=== PATIENT | male | born 1945 | race Caucasian/White ===

== ENCOUNTER 2017-08-01 16:39 | Inpatient (IN) | payer MEDICARE, OTHER ==
[2017-08-01] MEDS ORDERED: Methocarbamol 500 MG TAB PO SCH (18:15)
--- NOTE | 2017-08-01 18:24 | RAD ---
PORTABLE CHEST ONE VIEW: Date: 08-01-17 Time: 6:04 p.m. History: Trauma. Right sided back pain. FINDINGS: Comparison is made with 12-06-10. The heart size is borderline. The aorta is tortuous. The lungs are expanded without confluent areas of consolidation, pneumothorax, or pleural effusions. There are degenerative changes in the spine an d acromioclavicular joints. IMPRESSION: No acute process. POS: SOWMYA
--- NOTE | 2017-08-01 20:00 | RAD ---
RIGHIT HIP TWO VIEWS: History: Right hip pain, trauma. FINDINGS/IMPRESSION: Mild degenerative changes are present. There is a questionable fracture involving the subcapital reg ion of the right femoral neck. Further evaluation with CT is recommended. POS: BOOKER
[2017-08-01] MEDS ORDERED: Acetaminophen 500 MG TAB ONE (20:50)
--- NOTE | 2017-08-01 21:32 | CT ---
CT PELVIS WITHOUT CONTRAST: History: Fall, right hip pain. FINDINGS: There is a fracture involving the neck of the right femur without significant displacement. There is suggestion of an element of associated impaction. There are post op changes of left total hip arthroplasty in good position and alignment. There are d egenerative changes in the lower lumbar spine. No sigmoid diverticulosis. The prostate is enlarged. There are fat containing bilateral inguinal hernias, left larger than right. IMPRESSION: Right femoral neck fracture. POS: BOOKER
[2017-08-01] MEDS ORDERED: traMADol HCl 50 MG TAB PO PRN (21:45)
[2017-08-01] MEDS ORDERED: Dextrose 5% in Water 1,000 ML IV SCH (21:45)
[2017-08-01] MEDS ORDERED: Ondansetron HCl/PF 4 MG/2 ML Vial IVP PRN (21:45)
[2017-08-01] MEDS ORDERED: Bisacodyl 10 MG SUPP PR PRN (21:45)
[2017-08-01] MEDS ORDERED: Ondansetron ODT 4 MG TAB PO PRN (21:45)
[2017-08-01] MEDS ORDERED: Fleet Enema 133 ML BOT PR PRN (21:45)
[2017-08-01] MEDS ORDERED: Dextrose 50% Abboject 50 ML SYRINGE SLOW IVP PRN (21:45)
[2017-08-01] MEDS ORDERED: Insulin Regular 300 UNITS/3 ML VIAL SC PRN (21:45)
[2017-08-01] MEDS ORDERED: Milk Of Magnesia 30 ML UDCUP PO PRN (21:45)
[2017-08-01 22:01] LABS: #Eosinphils 0.5 thou/uL (0.0-0.7); #Lymphocytes 1.7 thou/uL (1.20-3.40); #Monocytes 0.9 thou/uL (0.11-0.59); #Neutrophils 7.8 thou/uL (1.40-6.50); %Basophils 0.2 % (0.0-1.0); %Eosinophils 4.2 % (0.0-10.0); %Lymphocytes 15.7 % (21.0-51.0); %Monocytes 8.3 % (0.0-10.0); Hematocrit 43.7 % (42.0-52.0); Red Blood Cell (RBC) Count 4.58 mill/uL (4.70-6.10); White Blood Cell (WBC) Count 10.9 thou/uL (4.8-10.8)
[2017-08-01 22:06] LABS: Prothrombin Time 14.7 SEC (12.0-14.7)
[2017-08-01 22:07] LABS: PTT 31.5 SEC (22.9-36.1)
[2017-08-01 22:22] LABS: Anion Gap 16 mmol/L (10-20); BUN (Urea Nitrogen) 34 mg/dL (8.4-25.7); CK (CPK) 274 U/L (30-200); Calc. Creatinine Clearance 0 mL/min (70-130); Calcium 9.5 mg/dL (7.8-10.44); Carbon Dioxide 20 mmol/L (23-31); Chloride 108 mmol/L (98-107); Estimated GFR-MDRD 29
[2017-08-01 23:14] VITALS: BMI 27.9
--- NOTE | 2017-08-02 01:32 | HP ---
This is Bradley Bai PA-C, dictating for Andrea Colon M.D. DATE OF ENCOUNTER: 08/01/2017 ATTENDING PHYSICIAN: Andrea Colon M.D. CONSULTING PHYSICIAN: Keo Espinoza M.D., as well as Loc Nielson M.D., for Orthopedics. CHIEF COMPLAINT: Evaluation status post fall. HISTORY OF PRESENT ILLNESS: This is a 71-year-old male who presented to the ED with a complaint of right hip pain and some right back pain, status post trying to step up on a step then missing a step , landing on his right side. Patient denies any neck pain, chest pain or shortness of breath at thi s time, otherwise at baseline. Patient denies any LOC. He reported that he landed on his right hip directly. EMS again reported the same right hip pain and back pain. Denies any alcohol involved. Also reports not being able to get up after the fall. PAST MEDICAL HISTORY: Includes COPD, diabetes and chronic kidney disease. PAST SURGICAL HISTORY: Cataracts, cholecystectomy and orthopedic surgery, left hip. PSYCHIATRIC HISTORY: Depression. SOCIAL HISTORY: The patient denies any alcohol use. Patient was a former tobacco smoker, quit less than 10 years ago. REVIEW OF SYSTEMS: All 10 systems were reviewed otherwise stated in the HPI were negative. PHYSICAL EXAMINATION: CURRENT VITAL SIGNS: Blood pressure 112/59, heart rate 69, respiratory rate 17, pain is about 5/10. HEENT: Atraumatic and normocephalic. No JVD, no masses. Pupils are equal, round and reactive to l ight. RESPIRATORY: Somewhat rhonchorous bilaterally and a slight expiratory wheeze. CARDIOVASCULAR: S1 and S2, regular rate and rhythm. BACK: Unremarkable. EXTREMITIES: Unremarkable lower extremities. Tenderness to the right hip, but otherwise no deformi ties or rotation. NEUROLOGIC: GCS of 15. SKIN: Warm and dry. LABORATORY AND IMAGING DATA: Laboratory results are pending. Radiologic results; CT of pelvis show ed a nondisplaced right subcapital femoral neck fracture. Chest x-ray showed no acute process. Hip x-ray showed possible hip fracture. ASSESSMENT: 1. Status post ground level fall. 2. Right subcapsular femoral neck fracture. 3. History of chronic obstructive pulmonary disease. 4. History of chronic kidney disease. 5. History of diabetes. PLAN: The patient was adamant about not having an IV due to not having a guaranteed time of surgery . Orthopedics have been consulted metal control coordinator as well as has requested physician, Dr. Nielson. Dr. Ace mcleod was made aware of this patient. The patient was not made n.p.o. after midnight unless guaranty a surgical start time of 6:00 a.m. The patient agreed to speak with orthopedics the following day and understood the effects that could add on end of the hospital day. The patient understood this and this was in the presence of his nurse at bedside. Patient was agreeable to admission and medication s by mouth, reconcile his home medications as well as give him some fluid or something to drink. Th e patient is nonweightbearing lower extremities, he fully understood that and will be compliant stay ing in bed and using urinal for bathroom. He will be started on gastritis and DVT prophylaxis on me chanical nature. The patient has been discussed with Dr. Colon and agreed with the above plan. We will also get Dr. Mulligan who is his software development engineer by patient's request due to his chronic kidney disease .
[2017-08-02] MEDS: Acetaminophen 500 MG TAB PO PRN ×2 (02:02→06:36)
--- NOTE | 2017-08-02 08:16 | CON ---
DATE OF CONSULTATION: 08/02/2017 CHIEF COMPLAINT: Right hip pain. HISTORY OF PRESENT ILLNESS: Mr. Bhardwaj is a 71-year-old male who presented after a fall, complaine d of right hip pain and some low back pain. The patient was admitted by Trauma. We were consulted for evaluation of the patient's right hip. He landed directly on his right side. The patient is cu rrently resting comfortably in bed. He states that he can move his hip, but does have some mild lynda n with right hip motion. The patient has a significant history for a left hip femoral neck fracture with left hip hemiarthroplasty, recently 1 month ago underwent a tenosynovectomy of his right hand by Dr. Perez. The hemiarthroplasty is approximately 6 years ago. The patient is comfortably res ting in bed, pain controlled. PAST MEDICAL HISTORY: COPD, diabetes, chronic kidney disease. PAST SURGICAL HISTORY: Cataracts, cholecystectomy and above orthopedic surgery. PSYCHIATRIC HISTORY: Depression. CURRENT MEDICATIONS: Please see admission list for full details. SOCIAL HISTORY: The patient denies alcohol use. He is a former smoker. The patient lives independ [facility], is able to get around at home. He would be described as a somewhat community ambulator, but does not walk long distances secondary to his COPD. REVIEW OF SYSTEMS: Otherwise, negative. PHYSICAL EXAMINATION: VITAL SIGNS: Currently, is 97.8, 61, 18, 92, 138/73. GENERAL: Alert and oriented male in no acute distress. EXTREMITIES: Right lower extremity has no bruises, no wounds, no knee effusion. The patient will p lantarflex, dorsiflex. Internal and external rotation of right hip is not painful, he has got no sh ortening or external rotation. The patient has cap refill. The L4 through S1 distributions is to p lantarflex, dorsiflex and extend his toes. LABORATORY AND X-RAY FINDINGS: He has a H\T\H of 14 and 43. INR 1.1. He has a creatinine of 2.25. The patient's plain films of his right hip, as well as CT of his right hip showed nondisplaced femor al neck fracture. CT scan shows a bipolar in place. IMPRESSION: 1. Right nondisplaced femoral neck fracture. 2. Chronic obstructive pulmonary disease. 3. Diabetes. 4. Chronic kidney disease. ASSESSMENT AND PLAN: I discussed with patient at bedside operative treatment options to include mariza sed reduction and percutaneous pinning, hemiarthroplasty and total hip arthroplasty. The patient di d not desire total hip replacement. I discussed that I could complete the fracture and place hemiar throplasty, at his previous site or place percutaneous screws. I discussed risks and benefits of alina th. The patient would like to discuss this with his family further. He is leaning towards closed r eduction and percutaneous pinning with 3 screws. I discussed this could fail and require revision t o total hip or hemiarthroplasty. I discussed this would be the most minimally invasive procedure an d the least amount of surgery, but that it has a little higher failure rate. I discussed that the p atient and family can discuss this. We will place IV, make him n.p.o. Patient will receive TXA and Ancef preoperatively. The patient will be posted for later this morning.
[2017-08-02] MEDS: Docusate 100 MG CAP PO SCH ×2 (09:29→20:03)
--- NOTE | 2017-08-02 09:43 | CON ---
DATE OF CONSULTATION: 08/02/2017 RENAL MEDICINE HISTORY OF PRESENT ILLNESS: Mr. Bhardwaj is a 71-year-old white male with chronic renal failure from hypertensive nephropathy. He was admitted for right hip pain with subsequent right hip fracture no nilson. We are now being consulted for his chronic renal failure/acute kidney injury. REVIEW OF SYSTEMS: Positive for right hip joint pain, no nausea, no vomiting, no diarrhea, no chest pain, no shortness of breath, no hematochezia, no melena, no hematemesis. No syncopal episode, no headache, no diplopia, no sore throat. Appetite and energy level is fair. No fever or chills. No hematochezia, no melena, no gross hematuria. MEDICATIONS: Currently on Tylenol 1000 mg q.6, DuoNeb q.6 p.r.n., Colace 100 mg p.o. b.i.d., Humuli n R sliding scale, and tramadol 50 mg q.6. HOME MEDICATIONS: Included gemfibrozil 600 mg p.o. b.i.d., amlodipine 10 mg tablet once a day, negro nopril 2.5 mg once daily, ProAir as directed. PAST MEDICAL HISTORY: Type 2 diabetes mellitus 13 years' duration, COPD, hypertension, DJD, basal c ell cancer, hyperlipidemia, chronic ibuprofen use. PAST SURGICAL HISTORY: 1. Status post left hip replacement. 2. Status post skin cancer excision. SOCIAL HISTORY: Patient is from [place]. He is a . He lives alone. 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 Education, high school. Smoked for 40 years and one and half pack a day. Alcohol none. No blood transfusion. No IV drug abuse. FAMILY HISTORY: Positive family history of ESRD. ALLERGIES: None. TRAUMA: Status post left hip fracture recently, status post right hip fracture. IMMUNIZATIONS: Up to date. HOSPITALIZATIONS: Please see past medical history. PHYSICAL EXAMINATION: VITAL SIGNS: Blood pressure is noted at 138/73, heart rate 61, respiratory rate 18, temperature 97. 8, pulse ox 92%. GENERAL: Awake, supine, comfortable, not in overt distress. SKIN: Adequate turgor. HEENT: Pinkish conjunctivae, anicteric sclerae. NECK: No neck mass, no carotid bruits, no JVD. CHEST: No deformities. LUNGS: Clear breath sounds. No wheezing, no crackles. HEART: Normal sinus rhythm. No murmur, no gallops, no rubs. ABDOMEN: Globular, soft, nontender, no masses. EXTREMITIES: No edema. Limited range of motion of right hip joint. NEUROLOGIC: Awake, oriented to 3 spheres. Moving all extremities. No tremors, no asterixis, no at axia. LABORATORY DATA: Laboratories of 08/01/2017, sodium 140, potassium 4.3, chloride 108, carbon dioxid e 20, BUN 34, creatinine 2.25, GFR 29 mL per minute, calcium 9.5, CK is 274, white count 10.9, hemog lobin 14.1. ASSESSMENT AND PLAN: 1. Acute kidney injury/chronic renal failure - slightly higher creatinine. My last creatinine was noted at 1.9. Currently, it is noted at 2.25 - that may be a component of prerenal azotemia. We wi ll start normal saline 100 mL an hour with this patient. Continue to hold off any VILMA inhibitors wi th this patient. Continue to hold off any nonsteroidal antiinflammatory drugs. 2. Right hip fracture - planned right hip surgery this morning. I agree with current management. We will be rechecking basic metabolic panel and CBC in a.m. with this patient. If needed, once the patient is able to take p.o., we can resume back amlodipine at 10 mg tablet once a day.
[2017-08-02] MEDS ORDERED: Midazolam HCl 2 mg/2 ml Vial ONE (12:21)
[2017-08-02] MEDS ORDERED: Fentanyl 100 MCG/2 ML VIAL ONE (12:21)
--- NOTE | 2017-08-02 12:23 | PRG-2 ---
DATE OF ADMISSION: 08/01/2017 DATE OF SERVICE: 08/02/2017 SUBJECTIVE: This is a 71-year-old male status post right nondisplaced femoral neck fracture after m echanical fall. The patient reports doing well today. Pain being well controlled as good as it can be when he gets up. Patient only requests to take Tylenol, does not want anything stronger for lynda n. He says he is able to tolerate the pain as needed. The patient has no other concerns or complai nts at this time. OBJECTIVE: VITAL SIGNS: Temperature is 97.8, pulse 61, respirations are 18, O2 sats are 92% on room air, blood pressure is 138/73. PHYSICAL EXAMINATION: GENERAL: He is an alert, oriented x3, in no acute distress. HEENT: Atraumatic, normocephalic. RESPIRATORY: The rhonchi heard bilaterally with a slight expiratory wheeze. Symmetric chest expans ion, nonlabored breathing. CARDIOVASCULAR: Regular rate and rhythm. No murmurs or gallops heard. EXTREMITIES: Unremarkable lower extremities: He is tender to the right hip, but otherwise no defor mities or rotation. NEUROLOGIC: No new focal neuro deficits. SKIN: Warm and dry. LABORATORY DATA: There are no new labs to review at this time. IMAGIN08/01/2017, his pelvis CT showed right femoral neck fracture. His 08/01/2017 chest x-ray showed no acute process. ASSESSMENT: 1. Status post mechanical fall. 2. Right subscapular femoral neck fracture, fixation pending. 3. History of chronic obstructive pulmonary disease. 4. History of chronic kidney disease being followed by Dr. Mulligan who has been consulted. 5. History of diabetes. PLAN: Plan is for him to be fixed by Orthopedic Surgery today. Plan for fixation of the femoral ne ck fracture. PT and OT will be consulted to continue working with him after surgery. Postoperative ly, we will continue to manage his pain as needed. The patient requests only Tylenol for pain. We will continue to see how he does postop. We also have consulted Dr. Mulligan who the patient follows out patient for his chronic kidney disease. We will follow Dr. Skelton' directions as he requests. I will continue to follow vital signs and assess labs as needed. The patient was seen and assessed with Desiree Jerry. Plan of care was discussed Dr. Jerry. This note needs to be cosigned by Dr. Jerry.
[2017-08-02] MEDS ORDERED: Sodium Chloride 0.9% 100 ML ONE ×2 (12:38→14:49)
[2017-08-02] MEDS ORDERED: Meperidine HCl/PF 25 MG/ML VIAL ONE (13:25)
[2017-08-02] MEDS ORDERED: Lidocaine 2% w/Epinephrine 1:200K 20 ML VIAL ONE (13:58)
[2017-08-02] MEDS ORDERED: Tranexamic Acid 1,000 MG in Sodium Chloride 0.9% 100 ML IVPB SCH (14:15)
[2017-08-02] MEDS ORDERED: Ondansetron HCl/PF 4 MG/2 ML Vial IVP PRN (14:46)
[2017-08-02] MEDS ORDERED: Promethazine HCl 25 MG/ML VIAL SLOW IVP PRN (14:46)
[2017-08-02] MEDS ORDERED: Promethazine HCl 25 MG/ML VIAL IM PRN (14:46)
--- NOTE | 2017-08-02 15:01 | RAD ---
FOUR INTRAOPERATIVE IMAGES OF THE RIGHT HIP: Date: 08-02-17 History: Fracture status post ORIF. FINDINGS: Four intraoperative images are provided. Images demonstrate placement of three screws traversing the right femoral neck. No evidence for hardware failure. IMPRESSION: ORIF as detailed above. POS: BOOKER
[2017-08-02] MEDS ORDERED: Ketorolac Tromethamine 30 MG/ML VIAL IVP PRN (15:48)
[2017-08-02] MEDS: Senokot S 8.6-50 MG TAB PO SCH (20:02)
[2017-08-02] MEDS: Ferrous Gluconate 324 MG TAB PO SCH (20:03)
[2017-08-03 05:40] LABS: Hematocrit 40.2 % (42.0-52.0); Mean Platelet Volume 6.8 fL (7.4-10.4); Red Blood Cell (RBC) Count 4.15 mill/uL (4.70-6.10); White Blood Cell (WBC) Count 10.2 thou/uL (4.8-10.8)
[2017-08-03 05:44] LABS: #Lymphocytes 0.7 thou/uL (1.20-3.40); #Monocytes 0.5 thou/uL (0.11-0.59); #Neutrophils 9.2 thou/uL (1.40-6.50); %Basophils 0.1 % (0.0-1.0); %Eosinophils 0.3 % (0.0-10.0); %Lymphocytes 6.8 % (21.0-51.0); Hematocrit 40.9 % (42.0-52.0); Mean Platelet Volume 6.6 fL (7.4-10.4); Red Blood Cell (RBC) Count 4.21 mill/uL (4.70-6.10); White Blood Cell (WBC) Count 10.4 thou/uL (4.8-10.8)
[2017-08-03 05:53] LABS: Anion Gap 12 mmol/L (10-20); BUN (Urea Nitrogen) 28 mg/dL (8.4-25.7); Calc. Creatinine Clearance 47 mL/min (70-130); Calcium 8.7 mg/dL (7.8-10.44); Carbon Dioxide 25 mmol/L (23-31); Chloride 107 mmol/L (98-107); Estimated GFR-MDRD 34
--- NOTE | 2017-08-03 06:10 | OP ---
DATE OF PROCEDURE: 08/02/2017 PREOPERATIVE DIAGNOSIS: Right femoral neck fracture, nondisplaced valgus impacted. POSTOPERATIVE DIAGNOSIS: Right femoral neck fracture, nondisplaced valgus impacted. PROCEDURE PERFORMED: Closed reduction and percutaneous pinning. STAFF: Keo Espinoza M.D. BOXING AND PRESSING SUPERVISOR: None. ANESTHESIA: Shayne Wilson M.D. The patient received LMA with a fascia iliaca block with 22% lidocaine subcutaneous and subfascial. ANTIBIOTICS: Ancef 2 grams, TXA 1 gram. IMPLANTS: The patient received three 7 x 3 screws, 100, 100, and 115 mm screws with 3 washers. COMPLICATIONS: None. HISTORY OF PRESENT ILLNESS: Mr. Bhardwaj is a pleasant 71-year-old male who fell from standing height sustaining a right femoral neck fracture. The patient has a history of COPD, kidney disease, hypertension, and a left femoral neck fracture. The patient was able to ambulate around the house and around the community, but is minimal because of his previous COPD. I discussed with the patient the risks and benefits of the closed reduction and percutaneous pinning for hemiarthroplasty. Family and the daughter elected for percutaneous pinning. Understood the potential risk of failure and required revision to total hip. He understood the risks and benefits of surgery that include pain, scar, bleeding, infection, damage to vital structures, decreased range of motion or strength, continued surgery, continued pain despite surgical intervention. The patient understood these risks and benefits and elected to proceed. PROCEDURE IN DETAIL: After a timeout was performed, the patient received LMA and fascia iliaca block for anesthesia. He was placed in a supine position; bump was placed under his right hip. Right hip was prepped and draped in sterile fashion and lateral markers were used to find the neck of the femur to itz out skin incision. Incision through skin, then through IT band was utilized, a guide pin was placed inferiorly and passed the inferior neck into nferior neck within the femoral head. I then used the pin guide to localize my second 2 pins and placed 2 more screws to the bone. Ensured under AP and lateral radiographs that the screws were within the bone of the head as well as laterally as well as to the neck based on images. After completion of this, I then drilled unicortically and placed a 100 in the superior anterior, 100 in the posterior superior, and then 115 mm screw in the inferior place. After completion of this, I then washed, took final films, I then removed the pins, washed, closed the IT band with 0, closed subcu with 2-0 screws, skin with jovon, placed 20 mL of lidocaine 2% with epinephrine. The patient will be weightbearing as tolerated. He will be followed in-house by Physical Therapy and will be discharged to home when he is cleared. NORRIS
[2017-08-03] MEDS ORDERED: Alogliptin Benzoate 6.25 MG TABLET PO SCH (09:00)
[2017-08-03] MEDS ORDERED: Aspirin 325 MG TAB PO SCH (09:00)
[2017-08-03] MEDS ORDERED: Non-Formulary Item 1 EACH (Umeclidinium/Vilanterol [Anoro Ellipta 62.5/25 Mcg Inh] 1 PUFF IH SCH (09:00)
[2017-08-03] MEDS ORDERED: Lisinopril 2.5 MG TAB PO SCH (09:00)
[2017-08-03] MEDS ORDERED: Fenofibrate Nanocrystallized 145 MG TAB PO SCH (09:00)
[2017-08-03] MEDS: Aspirin 81 mg Enteric Coated Tablet PO SCH (09:25)
--- NOTE | 2017-08-03 09:26 | PRG ---
DATE OF SERVICE: 08/03/2017 SUBJECTIVE: Mr. Bhardwaj is a 71-year-old white male who was admitted for a right femoral neck fract ure. He underwent a closed reduction and percutaneous pinning. We saw the patient for his acute ki dney injury on top of his chronic renal failure. He was started on volume repletion. This improved the creatinine. Lisinopril was restarted at 2.5 mg tab once daily. The patient denies any chest pain, shortness of breath, nausea or vomiting. PHYSICAL EXAMINATION: VITAL SIGNS: Blood pressure is 104/54, heart rate 70, respiratory rate 20, temperature 98. GENERAL: Awake, alert, comfortable, not in distress. SKIN: Adequate turgor. HEENT: Pinkish conjunctivae, anicteric sclerae. NECK: No neck mass, no carotid bruits, no JVD. CHEST: No deformities. LUNGS: Clear breath sounds. No wheezing, no crackles. HEART: Normal sinus rhythm. No murmur, no gallops or rubs. ABDOMEN: Globular, soft, nontender. EXTREMITIES: No edema, no deformities. MEDICATIONS: 08/03/2017 - Reviewed. LABORATORY: 08/03/2017 - Sodium 139, potassium 4.6, chloride 107, carbon dioxide 25, BUN 28, creati nine 1.97, glucose 49, calcium 8.7. White count 10.2, hemoglobin 12.8. ASSESSMENT AND PLAN: 1. Status post right femoral neck fracture - the patient is status post closed reduction with percu taneous pinning, doing well. Surgery is following. 2. Acute kidney injury - hemodynamically mediated renal dysfunction. Improved with volume repletio n. My bias due to the relatively low blood pressure is to discontinue his lisinopril. 3. Chronic renal failure, baseline creatinine is about 1.7-1.9. Continue current management. Ther e is no indication for any dialytic intervention. Recheck basic metabolic panel and CBC in a.m.
[2017-08-03] MEDS: Ferrous Gluconate 324 MG TAB PO SCH ×2 (09:27→21:40)
[2017-08-03] MEDS: AMLODIPINE BESYLATE 10 MG PO SCH (09:33)
[2017-08-03] MEDS: LISINOPRIL 2.5 MG PO SCH (09:34)
[2017-08-03] MEDS: SERTRALINE 50 MG PO SCH (09:35)
[2017-08-03] MEDS: FENOFIBRATE 145 MG PO SCH (09:36)
[2017-08-03] MEDS: JANUVIA 100 MG PO SCH (09:37)
[2017-08-03] MEDS: VITAMIN D3 2000 UNIT PO SCH (09:38)
[2017-08-03] MEDS: Docusate 100 MG CAP PO SCH ×2 (09:38→21:39)
[2017-08-03] MEDS: Senokot S 8.6-50 MG TAB PO SCH ×2 (09:39→21:41)
[2017-08-03] MEDS: Multivitamin W/ Minerals 1 TAB PO SCH (09:39)
[2017-08-03] MEDS: Acetaminophen 500 MG TAB PO PRN (09:43)
--- NOTE | 2017-08-03 11:52 | PRG-2 ---
DATE OF SERVICE: 08/03/2017 SUBJECTIVE: This is a 71-year-old male status post right nondisplaced femoral neck fracture after m echanical fall. The patient is postop day #1 status post repair of fracture. Reports doing well to day. Pain is tolerable. The patient only requests to take Tylenol. He has yet to work with PT and OT. He said he has sat up on the bed and has tolerated the pain okay. Otherwise, the patient has no other concerns or complaints at this time. OBJECTIVE: VITAL SIGNS: Temperature 98.0, pulse 70, respirations 20, O2 sat was 91% on 2 liters, blood pressur e was 104/54. GENERAL: Alert and oriented x3, no acute distress. HEENT: Atraumatic, normocephalic. RESPIRATORY: There is rhonchi heard bilaterally with a slight expiratory wheeze. Symmetric chest e xpansion, nonlabored breathing. CARDIOVASCULAR: Regular rate and rhythm. No murmurs or gallops. EXTREMITIES: Unremarkable. Lower extremities, no edema. Able to move upper extremities well. NEUROLOGIC: No new focal neuro deficits. LABORATORY DATA: White blood cell count of 10.2, hemoglobin 12.8, hematocrit 40.2, platelet count i s 204. Sodium is 139, potassium is 4.6, chloride 107, carbon dioxide 25, BUN is 28, creatinine is 1 .97, glucose was low at 49 and calcium is 8.7. No new images to review at this time. ASSESSMENT AND PLAN: 1. Status post mechanical fall. 2. Postop day #1 for fixation of right subscapular femoral neck fracture. 3. History of chronic obstructive pulmonary disease. 4. History of chronic kidney disease. Dr. Mulligan has been consulted. 5. History of diabetes. PLAN: The plan is for him to work with PT and OT today. We will manage pain as needed. I talked w ith him about using other pain medicines other than Tylenol if he needs to. The patient reports arnel erating diet. His creatinine has trended down. Per Dr. Mulligan's note he is at baseline creatinine. W e will continue to check labs as needed and monitor. Will continue to monitor vital signs as needed . His blood sugar was a little low overnight. We will continue to watch that and monitor and may a djust insulin as needed. The patient was seen with Dr. Jerry. The plan of care was discussed with Dr. Jerry.
[2017-08-04 05:11] LABS: #Eosinphils 0.6 thou/uL (0.0-0.7); #Lymphocytes 0.9 thou/uL (1.20-3.40); #Neutrophils 7.5 thou/uL (1.40-6.50); %Basophils 0.5 % (0.0-1.0); %Eosinophils 6.2 % (0.0-10.0); %Lymphocytes 8.8 % (21.0-51.0); %Monocytes 9.5 % (0.0-10.0); Hematocrit 40.4 % (42.0-52.0); Red Blood Cell (RBC) Count 4.17 mill/uL (4.70-6.10)
[2017-08-04 05:20] LABS: Anion Gap 10 mmol/L (10-20); BUN (Urea Nitrogen) 30 mg/dL (8.4-25.7); Calc. Creatinine Clearance 50 mL/min (70-130); Calcium 9.1 mg/dL (7.8-10.44); Carbon Dioxide 27 mmol/L (23-31); Chloride 103 mmol/L (98-107); Estimated GFR-MDRD 36
[2017-08-04] MEDS: traMADol HCl 50 MG TAB PO PRN ×2 (06:08→23:40)
[2017-08-04] MEDS: Aspirin 81 mg Enteric Coated Tablet PO SCH (09:51)
[2017-08-04] MEDS: SERTRALINE 50 MG PO SCH (09:51)
[2017-08-04] MEDS: LISINOPRIL 2.5 MG PO SCH (09:51)
[2017-08-04] MEDS: AMLODIPINE BESYLATE 10 MG PO SCH (09:52)
[2017-08-04] MEDS: FENOFIBRATE 145 MG PO SCH (09:53)
[2017-08-04] MEDS: VITAMIN D3 2000 UNIT PO SCH (09:53)
[2017-08-04] MEDS: Multivitamin W/ Minerals 1 TAB PO SCH (09:54)
[2017-08-04] MEDS: Senokot S 8.6-50 MG TAB PO SCH ×2 (09:54→21:03)
[2017-08-04] MEDS: Ferrous Gluconate 324 MG TAB PO SCH ×2 (09:54→21:03)
[2017-08-04] MEDS: Docusate 100 MG CAP PO SCH ×2 (09:54→21:03)
[2017-08-04] MEDS: JANUVIA 100 MG PO SCH (10:03)
--- NOTE | 2017-08-04 10:59 | PRG ---
DATE OF SERVICE: 08/04/2017 SUBJECTIVE: Mr. Bhardwaj is a 71-year-old male status post nondisplaced femoral neck fracture after mechanical fall. The patient is postop day #2 status post repair of fracture. The patient reports doing well today. He has started using pain medicine as ordered. He did, however, refuse his stool softeners. He is currently working with physical therapy and states his pain is better controlled. He did have an episode of hypoglycemia overnight; however, the patient states that he has been eat ing all his meals. He states that his blood sugars typically run 100-400 as an outpatient. The caroline zapata's primary care physician was contacted and notified of difficulty managing the patient's blood sugars on his oral anti-hyperglycemics. We will reduce his dose by half. OBJECTIVE: VITAL SIGNS: Temperature 98.9, pulse 86, respiration rate 18, O2 sat 90-94% on 2 liters room air, b lood pressure 103/59. GENERAL: Well-developed, well-nourished male resting in bed in no acute distress. PULMONARY: Normal work of breathing. Symmetric rise. CARDIOVASCULAR: Regular rate and rhythm. GASTROINTESTINAL: Soft, nontender, nondistended. MUSCULOSKELETAL: Moves all extremities x4. NEUROLOGIC: No focal deficit noted. LABORATORY DATA: WBC 10.0, hemoglobin 12.9, hematocrit 40.4, platelet count 216. Sodium 135, potas sium 4.9, chloride 103, carbon dioxide 27, BUN 30, creatinine 1.85. Glucose 53, most recent now 126 . No new radiographic findings. ASSESSMENT: 1. Status post fall. 2. Postop day #2 for fixation of right subcapsular femoral neck fracture. 3. History of chronic obstructive pulmonary disease. 4. History of chronic kidney disease, Nephrology following. 5. Diabetes with hypoglycemia. 6. Constipation. PLAN: Continue working with PT and OT. Follow up case management and possible inpatient rehabilita tion. As discussed with patient's primary care provider we will reduce the patient's Januvia to 50 mg p.o. daily. Continue pain management as ordered. Importance of a bowel regimen discussed with t he patient. Add lactulose 30 mg p.o. once daily until bowel movement. The patient was seen and shan luated by Dr. Jerry. All questions were answered at the time of this dictation.
[2017-08-04] MEDS ORDERED: Bisacodyl 10 MG SUPP PR SCH (15:30)
--- NOTE | 2017-08-04 22:53 | DIS ---
DATE OF ADMISSION: 08/01/2017 DATE OF DISCHARGE: 08/05/2017 ADMISSION DIAGNOSES: 1. Status post fall. 2. Acute traumatic pain. 3. Right femoral neck fracture. 4. Chronic obstructive pulmonary disease. 5. Chronic kidney disease. 6. Diabetes. DISCHARGE DIAGNOSES: 1. Status post fall. 2. Acute traumatic pain. 3. Right femoral neck fracture. 4. Chronic obstructive pulmonary disease. 5. Chronic kidney disease. 6. Diabetes. CONSULTANTS: Dr. Espinoza, Orthopedic Surgery. Dr. Mulligan, Nephrology. PROCEDURES: On 08/02/2017, closed reduction and percutaneous pinning of right femoral neck fracture with Dr. Espinoza. HOSPITAL COURSE: Mr. Bhardwaj is a 71-year-old gentleman that presented to [facility] status post fall. He was found to have the above injuries. The patient was optimized perioperatively and underwent operative fixation of his injury on 08/02/2017. Postoperatively, patient did well. He worked with physical therapy. Pain was controlled via p.o. analgesics. He was able to mobilize. He is tolerating p.o. diet. Of note, he was noted to be hypoglycemic at multiple periods throughout the day while on his oral anti- hyperglycemics. We contacted his primary care provider, who agreed that dose adjustment would be appropriate. His dose was adjusted by half at that time. He was thought to be medically stable for discharge and accepted to inpatient rehabilitation on 08/04/2017. Just prior to discharge patient was found to be hypoglycemic and was held overnight for further observation. His blood sugar improved with PO intake. His oral antihyperglycemics were discontinued prior to discharge. DISCHARGE DISPOSITION: Inpatient rehabilitation. DISCHARGE CONDITION: Good. PHYSICAL EXAMINATION: Gen: WDWN male in NAD Pulm: Normal wob, symmetric rise CV: RRR GI: ab soft ntnd MSK: flanagan x 4 Neuro: No focal deficit DISCHARGE INSTRUCTIONS: Discharge instructions were provided to the patient in the accepting facility. All questions were answered prior to discharge. DISCHARGE MEDICATIONS: Patient was to resume home medications. Discharge medications as documented in the electronic medical record. Of note, patient's Januvia was discontinued secondary to multiple hypoglycemic events FOLLOWUP APPOINTMENTS: The patient should follow up with his primary care provider for his diabetes once discharged from inpatient rehabilitation. He is to follow up with Dr. Mulligan from Nephrology for his chronic kidney disease. He should follow up with his reo asset manager for COPD. He should follow up with Dr. Espinoza from Orthopedic Surgery. Once discharged from inpatient rehabilitation , he does not need to follow up with Dr. Jerry formally. May call our office with any questions. This is merely a summary of the patient's hospitalization. For more in-depth information, please see his medical record in its entirety. NORRIS
[2017-08-05 06:09] LABS: Anion Gap 12 mmol/L (10-20); BUN (Urea Nitrogen) 32 mg/dL (8.4-25.7); Calc. Creatinine Clearance 50 mL/min (70-130); Calcium 8.8 mg/dL (7.8-10.44); Carbon Dioxide 25 mmol/L (23-31); Chloride 102 mmol/L (98-107); Estimated GFR-MDRD 37
[2017-08-05 08:39] VITALS: BP 115/65; TEMP 98.6
[2017-08-05] MEDS: Docusate 100 MG CAP PO SCH (08:41)
[2017-08-05] MEDS: Aspirin 81 mg Enteric Coated Tablet PO SCH (08:41)
[2017-08-05] MEDS: AMLODIPINE BESYLATE 10 MG PO SCH ×3 (08:42→08:57)
[2017-08-05] MEDS: Ferrous Gluconate 324 MG TAB PO SCH (08:42)
[2017-08-05] MEDS: Multivitamin W/ Minerals 1 TAB PO SCH (08:42)
[2017-08-05] MEDS: FENOFIBRATE 145 MG PO SCH (08:42)
[2017-08-05] MEDS: LISINOPRIL 2.5 MG PO SCH ×2 (08:43→08:57)
[2017-08-05] MEDS: Senokot S 8.6-50 MG TAB PO SCH (08:43)
[2017-08-05] MEDS: SERTRALINE 50 MG PO SCH ×2 (08:43→08:53)
[2017-08-05] MEDS: VITAMIN D3 2000 UNIT PO SCH ×2 (08:43→08:57)
[2017-08-05] MEDS ORDERED: Alogliptin Benzoate 6.25 MG TABLET PO SCH (09:00)
--- NOTE | 2017-08-05 09:11 | PRG ---
DATE OF SERVICE: 08/05/2017 SUBJECTIVE: Mr. Bhardwaj is a 71-year-old white male who was admitted for a right femoral neck fract ure and underwent closed reduction and percutaneous pinning. We are seeing this patient for his acu te renal failure on top of his chronic renal failure. He is doing well. He denies any complaints. Adjustment of his medications has been made. The patient denies any chest pain, shortness of breat h, nausea or vomiting. PHYSICAL EXAMINATION: VITAL SIGNS: Blood pressure is 115/65, heart rate 74, respiratory rate 16, temperature 98.6, pulse ox 93%. GENERAL: Awake, alert, comfortable. SKIN: Adequate turgor. HEENT: Pinkish conjunctivae. Anicteric sclerae. NECK: No neck mass, no carotid bruit, no JVD. CHEST: No deformities. LUNGS: Clear breath sounds. No wheezing, no crackles. HEART: Normal sinus rhythm. No murmur, no gallops or rubs. ABDOMEN: Globular, soft, nontender. EXTREMITIES: No edema. Limited range of motion right hip joint. MEDICATIONS 08/05/2017 - Reviewed. LABORATORY: 08/04/2017 - White count 10, hemoglobin 12.9. 08/05/2017 - Sodium 134, potassium 5.1, chloride 102, carbon dioxide 25, BUN 32, creatinine 1.83, gl ucose 86, calcium 8.8. ASSESSMENT AND PLAN: 1. Acute kidney injury on top of chronic renal failure, much improved creatinine. Creatinine is no w at baseline. Continue supportive care. No indication for any dialytic intervention. Continue to hold off lisinopril. 2. Status post right femoral neck fracture - status post surgery. Doing well, for rehabilitation. Overall, agree with current management.
== END 2017-08-05 11:38 | DRG 481 ==
LOC: ERS 16:39 → SURG A 21:27
PROVIDERS: ADMIT Surgery; ATTEND Surgery
PROC: 0QS634Z Reposition Right Upper Femur with Internal Fixation Device, Percutaneous Approach (ICD-10-PCS; principal; 2017-08-02)
PROC: 3E0T3BZ Introduction of Anesthetic Agent into Peripheral Nerves and Plexi, Percutaneous Approach (ICD-10-PCS; 2017-08-02)
DX: S72.011A Unspecified intracapsular fracture of right femur, initial encounter for closed fracture (principal); N17.9 Acute kidney failure, unspecified; E11.649 Type 2 diabetes mellitus with hypoglycemia without coma; E11.22 Type 2 diabetes mellitus with diabetic chronic kidney disease; J44.9 Chronic obstructive pulmonary disease, unspecified; W10.9XXA Fall (on) (from) unspecified stairs and steps, initial encounter; K59.00 Constipation, unspecified; I12.9 Hypertensive chronic kidney disease with stage 1 through stage 4 chronic kidney disease, or unspecified chronic kidney disease; N18.9 Chronic kidney disease, unspecified; Z87.891 Personal history of nicotine dependence; E66.9 Obesity, unspecified; Z68.27 Body mass index [BMI] 27.0-27.9, adult
CPT/HCPCS: 36415; 36416; 71010; 72192; 76001; 80048; 82550; 85025; 85610; 85730; 86850; 86900; 86901; 93005; 94640; C1713; C1769; G0390; G8978-GP-CL; G8979-GP-CJ; G8987-GO-CK; G8988-GO-CI; J2175; J2250; J3010; J7050; J7620

== ENCOUNTER 2017-08-16 14:09 | Outpatient (CLI) | payer MEDICARE, OTHER ==
--- NOTE | 2017-08-16 16:38 | RAD ---
PA AND LATERAL VIEWS OF CHEST: Date: 08/16/17 HISTORY: Dyspnea. FINDINGS: Comparison made with exam of 08/01/17. The heart size is normal. The aorta is tortuous. The lungs are well expanded with stable chronic funmilayo nges. No focal areas of consolidation, pneumothorax, or pleural effusions are seen. There are degene rative changes in the spine. IMPRESSION: No radiographic evidence of acute cardiopulmonary process. POS: [facility]
== END 2017-08-16 14:10 | disposition home or self-care (01) ==
LOC: RAD 14:09
PROVIDERS: ATTEND Internal Medicine
DX: R06.00 Dyspnea, unspecified (principal)
CPT/HCPCS: 71020

== ENCOUNTER 2017-12-08 09:38 | Outpatient (CLI) | payer MEDICARE, OTHER | END 2017-12-08 09:39 | disposition home or self-care (01) | LOC: BICULT 09:38 | PROVIDERS: ATTEND Internal Medicine | DX: N18.4 Chronic kidney disease, stage 4 (severe) (principal); N28.1 Cyst of kidney, acquired | CPT/HCPCS: 76770 ==

== ENCOUNTER 2018-03-21 17:28 | Emergency (ER) | payer MEDICARE, OTHER ==
[2018-03-21 18:05] LABS: #Basophils 0.1 thou/uL (0.0-0.2); #Eosinphils 0.3 thou/uL (0.0-0.7); #Lymphocytes 1.5 thou/uL (1.20-3.40); #Monocytes 0.8 thou/uL (0.11-0.59); #Neutrophils 6.7 thou/uL (1.40-6.50); %Basophils 0.7 % (0.0-1.0); %Eosinophils 2.7 % (0.0-10.0); %Lymphocytes 16.3 % (21.0-51.0); %Monocytes 8.2 % (0.0-10.0); %Neutrophils 72.1 % (42.0-75.0); Hemoglobin 13.4 g/dL (14.0-18.0); Mean Corpuscular HGB CONC 33.3 g/dL (32.0-36.0); Mean Corpuscular Hemoglobin 30.7 pg (27.0-31.0); Mean Corpuscular Volume 92.4 fl (80.0-94.0); Mean Platelet Volume 7.2 fL (7.4-10.4); Platelet Count 319 thou/uL (130-400); RBC Distribution Width 12.3 % (11.5-14.5); Red Blood Cell (RBC) Count 4.36 mill/uL (4.70-6.10); White Blood Cell (WBC) Count 9.4 thou/uL (4.8-10.8)
[2018-03-21 18:22] LABS: ALT (SGPT) 17 U/L (8-55); AST (SGOT) 23 U/L (5-34); Albumin 4.2 g/dL (3.4-4.8); Alkaline Phosphatase 57 U/L (40-150); Anion Gap 12 mmol/L (10-20); BUN (Urea Nitrogen) 29 mg/dL (8.4-25.7); Bilirubin, Total 0.8 mg/dL (0.2-1.2); CK (CPK) 91 U/L (30-200); Calc. Creatinine Clearance 0 mL/min (70-130); Calcium 9.6 mg/dL (7.8-10.44); Carbon Dioxide 24 mmol/L (23-31); Chloride 101 mmol/L (98-107); Estimated GFR-MDRD 34; Globulin 3.4 g/dL (2.4-3.5); Glucose 267 mg/dL (83-110); Potassium 3.9 mmol/L (3.5-5.1); Protein, Total 7.6 g/dL (5.8-8.1); Sodium 133 mmol/L (136-145)
[2018-03-21 18:26] LABS: CKMB 1.9 ng/mL (0-6.6)
[2018-03-21 18:37] LABS: Bilirubin Negative (Negative); Blood, Urine Negative (Negative); Clarity CLEAR (Clear); Glucose, Urine (Dipstick) Negative (Negative); Leukocyte Negative (Negative); Nitrite Negative (Negative); Protein, Urine (Dipstick) Negative (Neg-Trace); Specific Gravity, Urine 1.012 (1.002-1.036)
--- NOTE | 2018-03-21 19:17 | RAD ---
FRONTAL VIEW CHEST SERIES: INDICATIONS: Extreme dizziness. Frequent falling episodes. TECHNIQUE: Two views provided. COMPARISON: 08/01/2017 FINDINGS: Interstitial prominence of each lung is present. No lobar consolidation or effusion. No discrete pn eumothorax. The cardiac silhouette is stable. IMPRESSION: Interstitial prominence of the lungs bilaterally, which may relate to a chronic interstitial process versus a mild degree of interstitial pneumonitis. Recommend clinical correlation. As necessary, hilda ging followup may be obtained. POS: [facility]
== END 2018-03-21 21:59 | disposition home or self-care (01) ==
LOC: ERS 17:28
DX: E11.42 Type 2 diabetes mellitus with diabetic polyneuropathy (principal); J44.9 Chronic obstructive pulmonary disease, unspecified; Z87.891 Personal history of nicotine dependence; Z79.82 Long term (current) use of aspirin; Z79.899 Other long term (current) drug therapy
CPT/HCPCS: 36416; 71045; 80053; 81003; 82553; 84484; 85025; 93005

== ENCOUNTER 2018-03-24 13:11 | Outpatient (CLI) | payer MEDICARE, OTHER ==
--- NOTE | 2018-03-24 14:20 | CT ---
CT BRAIN WITHOUT CONTRAST: History: R20.2, R42, H53.9 Comparison: None. FINDINGS: No acute hemorrhage or infarct. No midline shift or mass effect. 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 Moderate right periventricular deep w ricci matter disease. Calvarium is intact. Paranasal sinuses and mastoids are clear. Superficial soft tissues are unremarka ble. IMPRESSION: No acute intracranial abnormalities. POS: [facility]
--- NOTE | 2018-03-24 14:38 | ULT ---
BILATERAL CAROTID DULEX ULTRASOUND: HISTORY: Visual disturbance. TECHNIQUE: Bhatt scale ultrasound with color flow and spectral Doppler imaging of the extracranial carotid artery system is performed bilaterally. FINDINGS: There is a small amount of plaque formation in the right carotid bulb. The peak systolic velocity in the right ICA measures 91 cm/s with an end-diastolic velocity of 23 cm/ s and a systolic ratio of 0.79. The peak systolic velocity in the left ICA measures 83 cm/s with an end-diastolic velocity of 25 cm/s and a systolic ratio of 0.67. Flow in both vertebral arteries remains antegrade. IMPRESSION: No evidence of hemodynamically significant stenosis. POS: [facility]
== END 2018-03-24 13:12 | disposition home or self-care (01) ==
LOC: CT 13:11
PROVIDERS: ATTEND Internal Medicine
DX: G45.9 Transient cerebral ischemic attack, unspecified (principal); R20.2 Paresthesia of skin
CPT/HCPCS: 70450; 93880

== ENCOUNTER 2018-12-23 12:47 | Observation (INO) | payer MEDICARE, OTHER ==
[2018-12-23 13:26] LABS: #Basophils 0.1 thou/uL (0.0-0.2); #Eosinphils 0.5 thou/uL (0.0-0.7); #Lymphocytes 1.4 thou/uL (1.20-3.40); #Monocytes 0.7 thou/uL (0.11-0.59); #Neutrophils 6.7 thou/uL (1.40-6.50); %Basophils 0.6 % (0.0-1.0); %Eosinophils 4.9 % (0.0-10.0); %Lymphocytes 15.1 % (21.0-51.0); %Monocytes 7.1 % (0.0-10.0); %Neutrophils 72.2 % (42.0-75.0); Hemoglobin 13.5 g/dL (14.0-18.0); Mean Corpuscular HGB CONC 31.5 g/dL (32.0-36.0); Mean Corpuscular Hemoglobin 30.6 pg (27.0-31.0); Mean Corpuscular Volume 97.2 fL (78.0-98.0); Mean Platelet Volume 7.2 fL (7.4-10.4); Platelet Count 221 thou/uL (130-400); RBC Distribution Width 13.2 % (11.5-14.5); Red Blood Cell (RBC) Count 4.43 mill/uL (4.70-6.10); White Blood Cell (WBC) Count 9.3 thou/uL (4.8-10.8)
[2018-12-23 13:56] LABS: ALT (SGPT) 7 U/L (8-55); AST (SGOT) 14 U/L (5-34); Albumin 4.3 g/dL (3.4-4.8); Alkaline Phosphatase 101 U/L (40-150); Anion Gap 14 mmol/L (10-20); BUN (Urea Nitrogen) 13 mg/dL (8.4-25.7); Bilirubin, Total 1.6 mg/dL (0.2-1.2); CK (CPK) 116 U/L (30-200); Calc. Creatinine Clearance 0 mL/min (70-130); Calcium 9.8 mg/dL (7.8-10.44); Carbon Dioxide 31 mmol/L (23-31); Chloride 100 mmol/L (98-107); Estimated GFR-MDRD 54; Globulin 3.3 g/dL (2.4-3.5); Glucose 88 mg/dL (83-110); Potassium 4.7 mmol/L (3.5-5.1); Protein, Total 7.6 g/dL (5.8-8.1); Sodium 139 mmol/L (136-145)
--- NOTE | 2018-12-23 14:06 | RAD ---
PORTABLE CHEST: Date: 12/23/18 HISTORY: Dyspnea. COMPARISON: 03/21/18. FINDINGS: Chronic-appearing lung changes with mild interstitial prominence appears stable. Heart size is upper normal and stable. Vasculature is within normal range. IMPRESSION: Chronic appearing changes are stable. No acute process or significant change apparent. POS: [facility]
[2018-12-23] MEDS ORDERED: Nitroglycerin 2% Ointment 1 INCH/1 GM Packet ONE (15:01)
[2018-12-23] MEDS ORDERED: Nitroglycerin 0.4 MG TAB 1 EACH ONE (15:01)
[2018-12-23] MEDS ORDERED: Aspirin Chewable 81 MG TAB ONE (15:01)
[2018-12-23] MEDS ORDERED: methylPREDNISolone Sod Succ/PF 125 MG/2 ML VIAL ONE (15:17)
[2018-12-23 18:10] LABS: Troponin I 0.011 ng/mL (< 0.028)
[2018-12-23] MEDS ORDERED: Ondansetron PF 4 MG/2 ML Vial IVP PRN (19:04)
[2018-12-23] MEDS ORDERED: Acetaminophen 325 MG TAB PO PRN (19:04)
[2018-12-23] MEDS ORDERED: Ondansetron ODT 4 MG TAB SL PRN (19:04)
[2018-12-23 19:55] VITALS: BMI 25.3
[2018-12-23 20:58] LABS: Troponin I Less than 0.010 ng/mL (< 0.028)
[2018-12-23] MEDS: methylPREDNISolone Sod Succ 40 MG VIAL IVP SCH (23:09)
[2018-12-23] MEDS ORDERED: methylPREDNISolone Sod Succ/PF 125 MG/2 ML VIAL IVP SCH (23:59)
[2018-12-24] MEDS ORDERED: Dextrose 50% Abboject 50 ML SYRINGE IVP PRN (03:26)
[2018-12-24] MEDS ORDERED: Dextrose 5% in Water 1,000 ML IV PRN (03:26)
[2018-12-24] MEDS ORDERED: HumaLOG 300 UNITS/3 ML VIAL SC PRN ×2 (03:26)
--- NOTE | 2018-12-24 03:36 | HP ---
PRIMARY CARE DOCTOR: Dr. Federica Garay. CODE STATUS FOR THIS PATIENT: He is full code. TIME OF EVALUATION: 10:35 p.m. CHIEF COMPLAINT: Shortness of breath. HISTORY OF PRESENT ILLNESS: A 73-year-old male patient with past medical history of COPD, came to the hospital after having worsening shortness of breath since last night. It has been gradually getting worse. No clear triggers. No alleviating factors. The patient has chronic respiratory failure, needing home oxygen. Symptoms were reported as severe. REVIEW OF SYSTEMS: CONSTITUTIONAL: No fever, chills, or generalized weakness. RESPIRATORY: The patient has shortness of breath, wheezing. No sputum production. CARDIOVASCULAR: No chest pain or palpitation. GASTROINTESTINAL: No nausea, vomiting, diarrhea, or abdominal pain. SLITTER CUT OFF OPERATOR: No dizziness, headache, or feeling lightheaded. GENITOURINARY: No burning on urination. EXTREMITIES: No leg swelling. All other systems were reviewed and negative except for the findings mentioned above. PAST MEDICAL HISTORY: Positive for diabetes type 2, COPD, and nephrotic syndrome. PAST SURGICAL HISTORY: Cataracts, cholecystectomy, and left hip surgery. PSYCHIATRIC HISTORY: Depression. SOCIAL HISTORY: No alcohol, no drugs. No smoking history. KNOWN ALLERGIES: No known drug allergies. FAMILY HISTORY:Reviewed and no contributory for current presentation. REPORTED MEDICATIONS: 1. Vitamin D3. 2. Aspirin. 3. Lisinopril. 4. Fenofibrate. 5. Ipratropium. 6. Albuterol. 7. Gabapentin. 8. Glipizide. PHYSICAL EXAMINATION: VITAL SIGNS: On presentation, blood pressure 144/94 with heart rate 82, respiratory rate was 18, temperature 98.3. Pain was 0/10. Oxygen saturation was 99% on 3 L. GENERAL APPEARANCE: The patient is alert, oriented, not in acute distress. HEAD: Eyes, normal conjunctivae. Moist oral mucosa. Anicteric. No JVD. RESPIRATORY: Bilateral air entry is decreased. No rales. The patient has bilateral wheezing scattered. Symmetric expansion. CARDIOVASCULAR: Normal rate, regular rhythm. No murmurs, no gallops. No edema. ABDOMEN: Soft. Normal bowel sounds. MUSCULOSKELETAL: Baseline range of motion and strength. No tenderness. SKIN: Warm and intact. No pallor. No rash. No redness. Peripheral pulses are present. Capillary refill seems to be intact. NEUROLOGIC: No evidence of any new focal weakness. Baseline speech. Cranial nerves seems to be intact. PSYCHIATRIC: The patient has good mood. No anxiety. Optimal judgment. IMAGING STUDIES: EKG was reviewed. The patient has sinus rhythm with fusion complexes and some PACs. His chest x-ray was reviewed. The patient has chronic appearing changes. No acute process or significant change is apparent. LABORATORY DATA: Labs were reviewed. The patient has white count 9.3, hemoglobin 13.5, MCV 97.2, and platelet count 221. Sodium 139, potassium 4.7, chloride 100 , carbon dioxide 31, anion gap 14, BUN 13, and creatinine 1.31. Previous creatinine 1.97. Glucose 88, calcium 9.8. Total bilirubin 1.6, AST 14, ALT 7. Troponin was negative x3. Beta natriuretic peptide 248, albumin 4.3. ASSESSMENT AND PLAN: The patient will be placed in the hospital following medical problems; 1. Chest pain, rule out acute coronary syndrome. The patient has troponin x3 was negative. No significant findings in the electrocardiography except for some changes in the ST-segment. We will monitor on tele. The patient also has chronic obstructive pulmonary disease exacerbations. We will await for the patient to be stable before we proceed with a stress test. 2. Chronic obstructive pulmonary disease exacerbation. We will place the patient on his steroid nebulizers, antibiotics. 3. Chronic kidney disease. The creatinine is 1.31 is all the same that he got in previous records. We will monitor and will treat accordingly. 4. Uncontrolled diabetes type 2. Reconcile home medication. We will place the patient on sliding scale for optimal control. 5. Deep venous thrombosis prophylaxis. Job ID: [id number] [facility]
[2018-12-24] MEDS: methylPREDNISolone Sod Succ 40 MG VIAL IVP SCH ×4 (05:30→23:26)
[2018-12-24 05:36] LABS: #Lymphocytes 0.6 thou/uL (1.20-3.40); #Monocytes 0.1 thou/uL (0.11-0.59); #Neutrophils 5.1 thou/uL (1.40-6.50); %Basophils 0.4 % (0.0-1.0); %Eosinophils 0.2 % (0.0-10.0); %Lymphocytes 10.7 % (21.0-51.0); %Monocytes 1.2 % (0.0-10.0); %Neutrophils 87.5 % (42.0-75.0); Hemoglobin 12.8 g/dL (14.0-18.0); Mean Corpuscular HGB CONC 31.8 g/dL (32.0-36.0); Mean Corpuscular Hemoglobin 30.7 pg (27.0-31.0); Mean Corpuscular Volume 96.7 fL (78.0-98.0); Mean Platelet Volume 7.7 fL (7.4-10.4); Platelet Count 215 thou/uL (130-400); RBC Distribution Width 13.1 % (11.5-14.5); Red Blood Cell (RBC) Count 4.15 mill/uL (4.70-6.10); White Blood Cell (WBC) Count 5.8 thou/uL (4.8-10.8)
[2018-12-24 05:55] LABS: Anion Gap 13 mmol/L (10-20); BUN (Urea Nitrogen) 22 mg/dL (8.4-25.7); Calc. Creatinine Clearance 61 mL/min (70-130); Calcium 9.5 mg/dL (7.8-10.44); Carbon Dioxide 29 mmol/L (23-31); Chloride 101 mmol/L (98-107); Estimated GFR-MDRD 51; Glucose 149 mg/dL (83-110); Potassium 4.9 mmol/L (3.5-5.1); Sodium 138 mmol/L (136-145)
[2018-12-24] MEDS: Aspirin 81 mg Enteric Coated Tablet PO SCH (08:26)
[2018-12-24] MEDS: Lisinopril 2.5 MG TAB PO SCH (08:27)
[2018-12-24] MEDS: Gabapentin 300 MG CAP PO SCH (08:27)
[2018-12-24] MEDS: Fenofibrate Nanocrystallized 145 MG TAB PO SCH (08:27)
[2018-12-24] MEDS: Enoxaparin Sodium 40 MG/0.4 ML SYRINGE SC SCH (08:27)
[2018-12-24] MEDS: Rosuvastatin 5 MG TAB PO SCH (08:28)
--- NOTE | 2018-12-24 16:09 | PDOC.PN ---
- Subjective Encounter Start Date: 12/24/18 Encounter Start Time: 10:00 The patient is a very pleasant male with PMH significant for emphysema on O2 24 hours ( 2 L), who presented with a 3 day history of worsening SOB and cough. His symptoms have vastly improved with breathing treatments and antibiotics. He has had no cough today. His chest pressure has also completely resolved. No N/V. No palpitations. - Objective Resuscitation Status - Order Detail: 12/24/18 02:15 Resuscitation Status Routine Resuscitation Status: DNAR: NO Resuscitation Discussed with: patient Additional comments: copy of OOH DNR placed in chart. confirmed status with patient. Duyen (pt's daughter and MPOA) at bedside Vital Signs & Weight: Vital Signs (12 hours) Temp Pulse Resp BP BP Pulse Ox 12/24/18 15:40 97.7 F 64 16 141/86 H 94 L 12/24/18 11:38 97.7 F 62 18 137/70 93 L 12/24/18 08:27 64 153/90 H 12/24/18 07:15 97.6 F 64 18 153/90 H 93 L Weight Weight 197 lb 3.2 oz I&O: 12/23/18 12/24/18 12/25/18 06:59 06:59 06:59 Intake Total 642 Output Total 450 150 Balance 192 -150 Result Diagrams: 12/24/18 04:39 12/24/18 04:39 Additional Labs: Accuchecks 12/24/18 12/24/18 12/23/18 10:34 05:36 21:00 POC Glucose 208 H 158 H 297 H Phys Exam - Physical Examination Constitutional: NAD HEENT: PERRLA Neck: no nodes, no JVD Respiratory: no rales, no rhonchi overall decreased vesicular breathing sounds Cardiovascular: RRR, no significant murmur Gastrointestinal: soft, non-tender, positive bowel sounds Musculoskeletal: no edema Neurological: non-focal Dx/Plan (1) COPD with acute exacerbation Code(s): J44.1 - CHRONIC OBSTRUCTIVE PULMONARY DISEASE W (ACUTE) EXACERBATION Status: Acute (2) Emphysema of lung Code(s): J43.9 - EMPHYSEMA, UNSPECIFIED Status: Acute (3) Chronic renal insufficiency, stage III (moderate) Code(s): N18.3 - CHRONIC KIDNEY DISEASE, STAGE 3 (MODERATE) Status: Chronic (4) Type II diabetes mellitus Status: Chronic Qualifiers: Diabetes mellitus complication status: without complication - Plan * . Given the patient's comorbidities, will continue to monitor him closely; continue breathing treatments, steroids, and abx. Anticipate discharge tomorrow. Review of Systems - Review of Systems Constitutional: negative: fever, chills Respiratory: Shortness of Breath Cardiovascular: negative: chest pain Gastrointestinal: negative: Nausea, Vomiting Musculoskeletal: negative: Neck Pain Neurological: negative: Weakness (SOB is back to his baseline) - Medications/Allergies Allergies/Adverse Reactions: Allergies Allergy/AdvReac Type Severity Reaction Status Date / Time No Known Allergies Allergy Verified 12/23/18 19:24 Medications: Current Medications Albuterol/Ipratropium (Duoneb) 3 ml NEB Q4H PRN PRN Reason: COUGH/WHEEZE Stop: 12/27/18 05:15 Aspirin (Ecotrin) 81 mg PO DAILY [facility] Last Admin: 12/24/18 08:26 Dose: 81 mg Cholecalciferol (Vitamin D3) 2,000 units PO DAILY [facility] Last Admin: 12/24/18 08:26 Dose: 2,000 units Dextrose/Water (Dextrose 50%) 25 gm IVP PRN PRN PRN Reason: HYPOGLYCEMIA PROTOCOL Enoxaparin Sodium (Lovenox) 40 mg SC 0900 [facility] Last Admin: 12/24/18 08:27 Dose: 40 mg Fenofibrate (Tricor) 145 mg PO DAILY [facility] Last Admin: 12/24/18 08:27 Dose: 145 mg Gabapentin (Neurontin) 900 mg PO DAILY [facility] Last Admin: 12/24/18 08:27 Dose: 900 mg Glucagon (Glucagon) 1 mg IM PRN PRN PRN Reason: HYPOGLYCEMIA PROTOCOL Levofloxacin 750 mg/ Device 150 mls @ 100 mls/hr IVPB Q24HR [facility] Last Admin: 12/24/18 04:03 Dose: 150 mls Dextrose/Water (D5w) 1,000 mls @ 0 mls/hr IV INF PRN PRN Reason: HYPOGLYCEMIA PROTOCOL Insulin Human Lispro (Humalog) 0 units SC .MILD SLIDING SCALE PRN; Protocol PRN Reason: MILD SLIDING SCALE Last Admin: 12/24/18 12:07 Dose: 3 unit Insulin Human Lispro (Humalog) 0 units SC .BEDTIME SLIDING SC PRN; Protocol PRN Reason: BEDTIME SLIDING SCALE Lisinopril (Zestril) 2.5 mg PO DAILY [facility] Last Admin: 12/24/18 08:27 Dose: 2.5 mg Methylprednisolone Sodium Succinate (Solu-Medrol) 40 mg IVP Q6HR [facility] Last Admin: 12/24/18 12:07 Dose: 40 mg Rosuvastatin Calcium (Crestor) 5 mg PO DAILY [facility] Last Admin: 12/24/18 08:28 Dose: 5 mg
[2018-12-25] MEDS: methylPREDNISolone Sod Succ 40 MG VIAL IVP SCH (05:51)
[2018-12-25 08:07] VITALS: BP 160/78; TEMP 98.1
[2018-12-25] MEDS: Lisinopril 2.5 MG TAB PO SCH (08:40)
[2018-12-25] MEDS: Aspirin 81 mg Enteric Coated Tablet PO SCH (08:40)
[2018-12-25] MEDS: Fenofibrate Nanocrystallized 145 MG TAB PO SCH (08:40)
[2018-12-25] MEDS: Rosuvastatin 5 MG TAB PO SCH (08:41)
[2018-12-25] MEDS: Enoxaparin Sodium 40 MG/0.4 ML SYRINGE SC SCH (08:41)
[2018-12-25] MEDS: Gabapentin 300 MG CAP PO SCH (08:41)
--- NOTE | 2018-12-26 01:49 | DIS ---
DATE OF ADMISSION: 12/23/2018 DATE OF DISCHARGE: 12/25/2018 CHIEF COMPLAINT: Shortness of breath and cough. FINAL DIAGNOSES: 1. Acute chronic obstructive pulmonary disease exacerbation of chronic emphysema. 2. Chest pain, resolved, acute coronary syndrome ruled out. 3. Type 2 diabetes mellitus. 4. Hypertension. LABORATORY RESULTS: White blood cell count 5.8, hemoglobin 12.8, and hematocrit 40.1. Sodium 138, potassium 4.9, creatinine 1.36, estimated GFR 51. IMAGING RESULTS: Chest x-ray, no acute process or significant change apparent. Chronic appearing changes with mild interstitial prominence are stable. CONSULTATIONS: None. HOSPITAL COURSE: The patient is a very pleasant 73-year-old male with past medical history significant for COPD/emphysema, on 3 L of oxygen at home at all times; type 2 diabetes mellitus, and hypertension, who presented with a 3-day history of worsening shortness of breath and cough. He did have some associated chest pressure, with his worsening shortness of breath. He was admitted with acute COPD exacerbation. He was treated with IV Solu-Medrol, breathing treatments, and IV levofloxacin, and has had complete resolution of all of his symptoms. Today, he feels well. He denies any further chest pressure or shortness of breath. He feels like he is back to his baseline. His cough is much improved. PHYSICAL EXAMINATION: VITAL SIGNS: Blood pressure 143/82, pulse is 62, and O2 saturation 97% on 3 L O2 nasal cannula. GENERAL: This is a well-appearing elderly male in no acute distress, sitting up and eating breakfast. CV: S1, S2, regular rate and rhythm, no appreciable murmurs, rubs, or gallops. LUNGS: Regular respiratory rate and pattern, overall clear, no rhonchi or wheezes, he does have mildly decreased vesicular breath sounds. ABDOMEN: Positive bowel sounds. Soft, nontender. NECK: No JVP. No carotid bruit. EXTREMITIES: No edema. +2 DP pulses bilaterally. CONDITION AT DISCHARGE: Stable. DISCHARGE MEDICATIONS: 1. Aspirin 81 mg daily. 2. Vitamin D3 2000 units p.o. daily. 3. Fenofibrate 145 mg p.o. daily. 4. Gabapentin 300 mg three tablet p.o. daily. 5. Glipizide 5 mg p.o. daily. 6. Ipratropium/albuterol sulfate 3 mL nebs q.i.d. p.r.n. 7. Levofloxacin 750 mg p.o. daily for the next 5 days to complete antibiotic course. 8. Lisinopril 2.5 mg daily. 9. Rosuvastatin 5 mg p.o. at bedtime. DISCHARGE DISPOSITION: Home. PLAN: The patient was counseled at length on using his nebulizer treatments as needed. He is on no maintenance inhalers at this time, but does see his gis specialist, Dr. Talavera on a regular basis. He will follow up with Dr. Talavera in an outpatient setting. He will continue his course of antibiotics for his acute COPD flare. He has seen Dr. Pérez in the past and has had a normal echocardiogram. I believe that all of his symptoms at this time were pulmonary in nature. He will continue aggressive risk factor modification including aggressive blood glucose control. We will discharge the patient home today with followup scheduled with his gis specialist and PCP. Job ID: [id number]
== END 2018-12-25 10:45 | disposition home or self-care (01) ==
LOC: ERS 12:47 → 2SW 17:27
PROVIDERS: ADMIT Internal Medicine; ATTEND Internal Medicine
DX: J43.9 Emphysema, unspecified (principal); R07.9 Chest pain, unspecified; I12.9 Hypertensive chronic kidney disease with stage 1 through stage 4 chronic kidney disease, or unspecified chronic kidney disease; E11.22 Type 2 diabetes mellitus with diabetic chronic kidney disease; N18.3 Chronic kidney disease, stage 3 (moderate); F32.9 Major depressive disorder, single episode, unspecified; Z90.49 Acquired absence of other specified parts of digestive tract; Z99.81 Dependence on supplemental oxygen; Z79.82 Long term (current) use of aspirin; Z79.2 Long term (current) use of antibiotics; Z79.899 Other long term (current) drug therapy; Z98.890 Other specified postprocedural states
CPT/HCPCS: 71045; 80048; 80053; 82550; 82962 ×3; 83880; 84484 ×2; 85025 ×2; 93005; 94640; 96365; 96366; 96372 ×2; 96375; 96376 ×3; 99285; G0378 ×2; 36415; 36416; 96374; J1650; J1956; J2920; J2930; J7620